=== PATIENT | male | born 1985 | race Caucasian/White ===

== ENCOUNTER 2020-12-05 15:01 | Emergency (ER) | payer BC ==
[2020-12-05 15:09] VITALS: BP 122/78; PULSE 80; RESP 18; TEMP 97.8
[2020-12-05] MEDS ORDERED: ACET/COD 300 MG/30 MG STARTER PACK 6 TAB BTL PO STA (15:22)
[2020-12-05] MEDS ORDERED: AMOXIC-POT CLAV 875MG STARTER PACK 2 TAB BTL PO STA (15:22)
--- NOTE | 2020-12-05 15:23 | ED ---
ENT HPI - General Chief complaint: Dental/Oral Stated complaint: Abcess Tooth/inquicker Time Seen by Provider: 12/05/20 15:05 Source: patient Mode of arrival: ambulatory Limitations: no limitations - History of Present Illness Initial comments: 35yo male presenting for cc of left lower dental pain. Patient states that he has had infections of his crown 3 times. Patient states he is on antibiotics about a month ago he states clindamycin seemed to work he states that infection was better for about a week or more. He states they came back as unconscious, and azithromycin he denies any penicillin ALLERGIES he is not sure why they chose this antibiotic. Patient states it does not seem to be helping his been taking for 2 days. Patient denies fevers, swelling below the tongue or of the neck difficulty breathing. Patient states he left work today secondary to the pain. Patient is no additional complaints he appears nontoxic in no acute distress. - Related Data Previous Rx's Medication Instructions Recorded Amoxic-Pot Clav 875-125Mg 1 tab PO Q12HR 10 Days #20 tab 12/05/20 [Augmentin 875-125] Allergies Allergy/AdvReac Type Severity Reaction Status Date / Time No Known Allergies Allergy Verified 12/05/20 15:09 Review of Systems ROS Statement: Those systems with pertinent positive or pertinent negative responses have been documented in the HPI. ROS Other: All systems not noted in ROS Statement are negative. Past Medical History Past Medical History: No Reported History History of Any Multi-Drug Resistant Organisms: None Reported Past Surgical History: Hernia Repair Past Psychological History: No Psychological Hx Reported Smoking Status: Never smoker Past Alcohol Use History: Rare Past Drug Use History: None Reported General Exam - General Exam Comments Initial Comments: General: The patient is awake and alert, in no distress, and does not appear acutely ill. Eye: Pupils are equal, round and reactive to light, extra-ocular movements are intact. No nystagmus. There is normal conjunctiva bilaterally. No signs of icterus. Ears, nose, mouth and throat: There are moist mucous membranes. abscess near gumline of tooth #21 Cardiovascular: There is a regular rate and rhythm. No murmur, rub or gallop is appreciated. Respiratory: Lungs are clear to auscultation, respirations are non-labored, breath sounds are equal. No wheezes, stridor, rales, or rhonchi. Musculoskeletal: Normal ROM, no tenderness. Strength 5/5. Sensation intact. Radial pulses equal bilaterally 2+. Neurological: A&O x 3. CN II-XII intact grossly, There are no obvious motor or sensory deficits. Coordination appears grossly intact. Speech is normal. Skin: Skin is warm and dry and no rashes or lesions are noted. Psychiatric: Cooperative, appropriate mood & affect, normal judgment. Limitations: no limitations Course Vital Signs 12/05/20 15:06 Temperature 97.8 F Pulse Rate 80 Respiratory 18 Rate Blood Pressure 122/78 O2 Sat by Pulse 99 Oximetry Procedures - Incision & Drainage Consent Obtained: verbal consent Indication: dental abscess left lower tooth Site: oral Needle Aspiration Performed?: Yes (18g used.) I&D Drainage Obtained: Pus, Blood Patient Tolerated Procedure: well Medical Decision Making - Medical Decision Making afebrile. 35-year-old male presented for dental pain abscess was drained obtain a moderate amount of purulent drainage. Patient had some relief. Patient hasn't no signs of Christoph's angina be discharged on oral antibiotics Augmentin. Patient is to follow up with his adoptive return for worsening swelling pain swelling below tongue difficulty breathing or fevers. She agreeable to this care plan discharge at this time. He states he will attempt to get earlier follow-up appointment. Disposition Clinical Impression: Dental abscess Disposition: HOME SELF-CARE Condition: Good Instructions (If sedation given, give patient instructions): Dental Abscess (ED) Additional Instructions: Please use medication as discussed. Please follow-up with dentist in next week. take antibiotics as discussed-return for increasing swelling/pain, fevers, difficulty swallowing or neck/below tongue swelling. Please return to emergency room if the symptoms increase or worsen or for any other concerns. Prescriptions: Amoxic-Pot Clav 875-125Mg [Augmentin 875-125] 1 tab PO Q12HR 10 Days #20 tab Is patient prescribed a controlled substance at d/c from ED?: No Referrals: None,Stated [Primary Care Provider] - 1-2 days Time of Disposition: 15:23
== END 2020-12-05 15:27 | disposition home or self-care (01) ==
LOC: EC 15:01
DX: K04.7 Periapical abscess without sinus (principal)
CPT/HCPCS: 10160; 99282